=== PATIENT | female | born 1975 | race African-American/Black ===

== ENCOUNTER 2019-08-25 21:00 | Emergency (ER) | payer SELFPAY ==
[~2019-08-25] VITALS: Ht 167.6 cm; Wt 75.7 kg
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
[2019-08-25] MEDS ORDERED: NEOMY/BACITR/POLYMYXIN OINT PACKET. TP ONE ×2 (21:09→21:11)
[2019-08-25 21:10] VITALS: BP 125/94
[2019-08-25] MEDS ORDERED: DIPHTH,PERTUSS(ACELL),TET TOX 0.5 ML DISP.SYRIN. VAX IM ONE (21:15)
[2019-08-25] MEDS ORDERED: MORPHINE SULFATE 10 MG/ML SYRINGE. SQ ONE ×2 (21:30→22:00)
[2019-08-25] MEDS ORDERED: ACETAMINOPHEN 500 MG TABLET PO ONE (21:30)
[2019-08-25] MEDS ORDERED: HYDR-1179 PO (21:36)
[2019-08-25 21:46] LABS: BARBITURATES NEG (NEG); BENZODIAZEPINES NEG (NEG); CANNABINOIDS POS (NEG); COCAINE NEG (NEG); METHADONE NEG (NEG); OPIATES NEG (NEG); PHENCYCLIDINE POS (NEG)
[2019-08-25 21:47] LABS: AMPHETAMINE/METHAMPHETAMINE NEG (NEG)
[2019-08-25 21:51] LABS: BACTERIA,URINE MOD /HPF (0-FEW); BILIRUBIN,URINE NEG (NEG); CLARITY,URINE HAZY; COLOR,URINE YELLOW; GLUCOSE,URINE NEG (NEG); NITRITE,URINE NEG (NEG); RBC,URINE RARE /HPF (0-2); SQUAMOUS EPITHELIAL CELL,UR MANY /LPF; UROBILINOGEN,URINE 0.2 mg/dL (0.2 mg/dL)
[2019-08-25] MEDS ORDERED: KETOROLAC 60 MG/2 ML VIAL. IM ONE (22:00)
== END 2019-08-25 22:05 | disposition home or self-care (01) ==
LOC: ER 21:00
DX: T23.201A Burn of second degree of right hand, unspecified site, initial encounter (principal); X10.2XXA Contact with fats and cooking oils, initial encounter; Y93.89 Activity, other specified; Y92.89 Other specified places as the place of occurrence of the external cause; Y99.8 Other external cause status
CPT/HCPCS: 36415; 80307; 81001; 81025; 87086; 90471; 90715; 96372; 99284; J1885; J2270